=== PATIENT | male | born 2000 | race Caucasian/White ===

== ENCOUNTER 2020-10-17 14:46 | Emergency (ER) | payer OTHER ==
[~2020-10-17] VITALS: Ht 175.3 cm; Wt 95.3 kg
[2020-10-17] MEDS ORDERED: AMBIEN5 MG PO (15:29)
[2020-10-17] MEDS ORDERED: ATIVAN1 M1 PO (15:29)
[2020-10-17 15:46] VITALS: BP 129/79
== END 2020-10-17 15:47 | disposition home or self-care (01) ==
LOC: ER 14:46
DX: F41.8 Other specified anxiety disorders (principal); G47.00 Insomnia, unspecified